=== PATIENT | female | born 1990 | race Caucasian/White ===

== ENCOUNTER → 2019-03-02 | Outpatient (CLI) | payer OTHER ==
[~2019-03-02] MED LIST: NUVARING VAG RING VG; PERCOCET 325 MG1 TA2 PO; PRENATAL1 TA1 PO; ULTRAM 50MG TAB50 MG PO; VICODIN 5/5001 UDTAB PO
== END ==
LOC: SUN.DIA 07:34
DX: O24.419 Gestational diabetes mellitus in pregnancy, unspecified control (principal); Z3A.21 21 weeks gestation of pregnancy
CPT/HCPCS: G0108

== ENCOUNTER → 2019-03-06 | Outpatient (CLI) | payer OTHER | LOC: SUN.DIA 09:29 | DX: O24.419 Gestational diabetes mellitus in pregnancy, unspecified control (principal); Z3A.20 20 weeks gestation of pregnancy | CPT/HCPCS: G0108 ==

== ENCOUNTER → 2019-03-27 | Outpatient (CLI) | payer OTHER | LOC: SUN.DIA 10:22 | DX: O24.419 Gestational diabetes mellitus in pregnancy, unspecified control (principal); Z3A.34 34 weeks gestation of pregnancy | CPT/HCPCS: G0108 ==

== ENCOUNTER 2019-04-23 19:09 | Outpatient (CLI) | payer OTHER ==
[~2019-04-23] VITALS: Ht 152.4 cm; Wt 94.1 kg
[2019-04-23 19:14] VITALS: BP 128/76; PULSE 93; TEMP 98.1
[2019-04-23 19:30] VITALS: BP 128/76; PULSE 93; TEMP 98.4
== END 2019-04-23 20:26 | disposition home or self-care (01) ==
LOC: LDRO 19:09
DX: O36.8130 Decreased fetal movements, third trimester, not applicable or unspecified (principal); Z3A.37 37 weeks gestation of pregnancy

== ENCOUNTER 2019-04-29 01:07 | Inpatient (IN) | payer OTHER ==
[2019-04-29] VITALS (21 sets, daily range): BP systolic 104–146; BP diastolic 54–96; PULSE 76–107; TEMP 98.6–99.4
[~2019-04-29] VITALS: Ht 152.4 cm; Wt 95.5 kg
--- NOTE | 2019-04-29 01:15 | NUR ---
0115- PATIENT BEING SEEN FOR LABOR CHECK AT 38.4 WEEKS WITH C/O OF CONTRACTIONS. VSS. SVE /-2, INTACT ON ADMISSION. GDM DIAGNOSIS WITH , ALSO GBS +
[2019-04-29 01:59] LABS: BASO % 0.2 % (0.0-2.0); EOS # 0.2 (0.0-0.7); EOS % 1.6 % (0-4.0); GRAN # 6.1 (1.4-6.5); GRAN % 65.4 % (42.2-75.2); HEMATOCRIT 37.6 % (37.0-47.0); HEMOGLOBIN 12.4 g/dl (12.5-16.0); LYMPH # 2.4 (1.2-3.4); LYMPH % 25.4 % (20.0-51.0); MEAN CELL VOLUME 83 fl (80.0-100.0); MEAN CORPUSCULAR HEMOGLOBIN 27 pg (27.0-31.0); MEAN CORPUSCULAR HGB CONC 33 g/dl (33.0-37.0); MEAN PLATELET VOLUME 11.5 fl (7.4-10.4); MONO # 0.7 (0.1-0.6); MONO % 7.1 % (1.7-9.3); PLATELET COUNT 191 K/mm3 (130-400); RED BLOOD COUNT 4.55 M/mm3 (4.10-5.30); REDCELL DISTRIBUTION WIDTH-CV 14.4 % (11.5-14.5)
--- NOTE | 2019-04-29 02:25 | NUR ---
0225- BEDSIDE GLUCOSE CHECK 95 AT THIS TIME
[2019-04-30 06:45] VITALS: BP 123/76; PULSE 86; TEMP 98.2
--- NOTE | 2019-04-30 06:45 | NUR ---
Rests om bed. alert. States having some numbness in her left leg. States thinks its from the epidural. Says has been having it for awhile, but able to walk. Will continue to monitor.
--- NOTE | 2019-04-30 09:06 | NUR ---
Initial visit; Mom thanked Uniform Room Attendant for offering congratulations and God's blessings for the of her son. Uniform Room Attendant thanked her for choosing [facility].
--- NOTE | 2019-04-30 10:30 | NUR ---
Destiny Kim visits with patient about left arm and left leg feeling numb.
--- NOTE | 2019-04-30 13:15 | NUR ---
Rests in chair . Request tums. Tums 1000 mg given as ordered.
[2019-04-30 16:15] VITALS: BP 120/67; PULSE 73; TEMP 98.2
[2019-04-30 21:15] VITALS: BP 125/70; PULSE 81; TEMP 98.4
[2019-05-01 07:55] VITALS: BP 126/81; PULSE 86; TEMP 98.2
[2019-05-01] MEDS ORDERED: IBU800 M1 PO (08:56)
== END 2019-05-01 15:00 | disposition home or self-care (01) | DRG 807 ==
LOC: LDRO 01:07 → OB 01:27 → LDR 01:27 → OB 06:14
PROVIDERS: Obstetrics & Gynecology; ADMIT Obstetrics & Gynecology
PROC: 10E0XZZ Delivery of Products of Conception, External Approach (ICD-10-PCS; principal; 2019-04-29)
PROC: 0HQ9XZZ Repair Perineum Skin, External Approach (ICD-10-PCS; 2019-04-29)
DX: O99.824 Streptococcus B carrier state complicating childbirth (principal); Z37.0 Single live birth; Z3A.38 38 weeks gestation of pregnancy; O70.0 First degree perineal laceration during delivery; G58.8 Other specified mononeuropathies; O69.81X0 Labor and delivery complicated by cord around neck, without compression, not applicable or unspecified; O24.420 Gestational diabetes mellitus in childbirth, diet controlled; O99.62 Diseases of the digestive system complicating childbirth; K21.9 Gastro-esophageal reflux disease without esophagitis; O99.344 Other mental disorders complicating childbirth
CPT/HCPCS: J2400; J2540; J2590; J7120

== ENCOUNTER → 2019-05-09 | Outpatient (CLI) | payer OTHER ==
[~2019-05-09] MED LIST changes: +IBU800 M1 PO
--- NOTE | 2019-05-09 14:27 | NUR ---
Pt, Amber Brown, presents for outpatient consult with 10 day old baby boy, Javon Ortega, for a evaluation. Pt is concerned about low milk supply, which was a problem with her previous child who is now 6. Javon was born on [birth year] and weighed 7#12oz (3505 gms). Discharge weight was 7#6.2oz (3350 gms). Javon is a patient of Dr. Martinez and has been followed closely for jaundice. Pt contacted this at the end of last week when bilirubin was elevated for advice, she was advised to breastfeed, supplement a couple ounces EBM or formula after and then pump and use the collected milk for supplement. Pt has generally followed this advice, perhaps not putting baby to breast as much over derrick weekend. Javon's weights reported from Dr. Martinez's office are as follows: 05/03/19 3.2 kg (7#0.9oz) 05/04/19 3.35 kg (7#6.2oz) 05/08/19 3.45 kg (7#9.7oz). At this appointment pt was advised to breastfeed each feeding and supplement with 1-2oz formula after feedings. Today Javon weighs 7#13.6oz (3562 gms). After at this appointment Javon has a weight gain per pre and post feeds weight of 28 gms. He is placed back to the breast with Supplemental Nursing System (SNS) and has an additional gain of 60gms from formula and 8 more gms from breastmilk for a total gain of 96 gms (3.5oz). Pt reports when she pumps after feedings she collects about 20ml. She is saving this in the freezer incase Javon is sick later. POC: Pt advised to continue with 3-step feeding plan of breast/supplement/pump. Encouraged to try SNS for supplement, and to offer 1-2oz supplement after . Pt also advised to increase pumping and incorporate a "power pumping" session in x1 daily. Pt also recently started use of herbal supplements to help with milk supply. F/U: one week for consult with this to evaluate milk supply/transfer. Questions invited and answered. Respectfully, Cecilia Reid RN, BSN, IBCLC
== END ==
LOC: OLC 12:07
DX: Z39.1 Encounter for care and examination of lactating mother (principal); Z71.89 Other specified counseling

== ENCOUNTER 2020-05-11 08:07 | Outpatient (CLI) | payer MEDICAID ==
[~2020-05-11] VITALS: Ht 152.4 cm; Wt 91.4 kg
[2020-05-11] MEDS ORDERED: TYLENOL 500MG500 MG PO (08:10)
[2020-05-11 08:11] VITALS: BP 132/72; PULSE 88; TEMP 98.5
--- NOTE | 2020-05-11 08:25 | NUR ---
PT HERE FOR EVALUATION SHE REPORTS SHE HAS HAD HEADACHES FOR THE LAST MONTH THAT ARE WORSENING. OVER THE LAST 2 DAYS HAVING BACK AND ABDOMINAL PAIN BUT DENIES CONTRACTIONS. PT STATES SHE RECEIVED 2 DEPO PROVERA SHOTS BEFORE SHE FOUND OUT SHE WAS . FHT'S FOUND IN THE 135 RANGE WITH MODERATE VARIABILITY AND ACCELS. PLAN OF CARE REVIEWED WITH PATIENT.
[2020-05-11 09:00] VITALS: BP 132/72; PULSE 88; TEMP 98.5
--- NOTE | 2020-05-11 09:31 | NUR ---
Dr. Meehan on unit, reviews FHR strip and updated on patient. Patient able to void for UA at this time, sent to lab.
[2020-05-11 09:35] LABS: COLLECTION METHOD CLEAN CATCH
[2020-05-11 09:46] LABS: MUCOUS Present /lpf; PH 6 (5-8); URINE APPEARANCE Hazy; URINE BACTERIA None Seen /hpf; URINE BILIRUBIN Negative (NEGATIVE); URINE BLOOD Negative (NEGATIVE); URINE COLOR Yellow; URINE GLUCOSE Negative (NEGATIVE); URINE KETONE Trace (NEGATIVE); URINE LEUKOCYTE ESTERASE Negative (NEGATIVE); URINE NITRATE Negative (NEGATIVE); URINE PROTEIN(semi-quant) Negative (NEGATIVE); URINE RBC 0-2 /hpf; URINE UROBILINOGEN Negative (NEGATIVE); URINE WBC 0-2 /hpf
--- NOTE | 2020-05-11 09:52 | NUR ---
Physician on unit, udpated on lab results. Discharge order recieved.
--- NOTE | 2020-05-11 10:00 | NUR ---
Patient given discharge instructions. Reviewed labor precautions and kick counts. Denies questions. Has follow up appt tomorrow. Encouraged increased oral hydration and rest. Patient leaves ambulatory.
== END 2020-05-11 10:00 | disposition home or self-care (01) ==
LOC: LDRO 08:07 → LDR 08:07 → LDRO 10:00
PROVIDERS: Student in an Organized Health Care Education/Training Program
DX: O36.8130 Decreased fetal movements, third trimester, not applicable or unspecified (principal); O26.893 Other specified pregnancy related conditions, third trimester; M54.9 Dorsalgia, unspecified; R10.9 Unspecified abdominal pain; R51 Headache; Z3A.28 28 weeks gestation of pregnancy; Z87.59 Personal history of other complications of pregnancy, childbirth and the puerperium
CPT/HCPCS: OP

== ENCOUNTER 2020-07-18 06:30 | Inpatient (IN) | payer MEDICAID ==
[~2020-07-18] VITALS: Ht 154.9 cm; Wt 97.3 kg
[2020-07-18] VITALS (15 sets, daily range): BP systolic 129–163; BP diastolic 64–95; PULSE 71–97; TEMP 97.7–98
[~2020-07-18 06:30] MED LIST changes: +TYLENOL 500MG500 MG PO
--- NOTE | 2020-07-18 06:30 | NUR ---
PATIENT HERE COMPLAINS OF CONTRACTIONS. ON EFM, VITALS OBTAINED, ASSESMENT COMPLETE,PATIENT HAS MILD BLOODY SHOW. SVE /-2. DR VELOZ NOTIFIED.
--- NOTE | 2020-07-18 08:35 | NUR ---
Assumed care of patient. Rests in bed, alert. Asked to stand up. Assist patient, standing at bedside. 0843 States having to push. Patient assist to lying position. 0847 Vag exam done, complete, plus two. Dr. Noland let know patient complete ready to push. 0850 Dr. Noland in room, prepps for delivery. 0854 Spontaneous delivery of baby girl by Dr. Noland. 0857 Spontaneous delivery of placenta by Dr. Noland. Pitocin 333ccs an hour started as ordered and per policy.
[2020-07-18 08:44] LABS: BASO % 0.3 % (0.0-2.0); EOS # 0.2 (0.0-0.7); EOS % 1.5 % (0-4.0); GRAN # 7.8 (1.4-6.5); GRAN % 71.1 % (42.2-75.2); HEMATOCRIT 41.1 % (37.0-47.0); HEMOGLOBIN 13.3 g/dl (12.5-16.0); LYMPH # 2.4 (1.2-3.4); LYMPH % 22.2 % (20.0-51.0); MEAN CELL VOLUME 78 fl (80.0-100.0); MEAN CORPUSCULAR HEMOGLOBIN 25 pg (27.0-31.0); MEAN CORPUSCULAR HGB CONC 32 g/dl (33.0-37.0); MEAN PLATELET VOLUME 11.2 fl (7.4-10.4); MONO # 0.5 (0.1-0.6); MONO % 4.4 % (1.7-9.3); PLATELET COUNT 255 K/mm3 (130-400); RED BLOOD COUNT 5.26 M/mm3 (4.10-5.30); REDCELL DISTRIBUTION WIDTH-CV 16.2 % (11.5-14.5)
--- NOTE | 2020-07-18 08:46 | NUR ---
0740- CONTRACTION BUTTON GIVEN TO PATIENT. UNABLE TO SHOW HORSE DRIVER CONTRACTIONS. 0820- DR VELOZ UNABLE TO BREAK WATER- NO BAG PER DR VELOZ
--- NOTE | 2020-07-18 09:15 | NUR ---
Rests in bed, alert. Denies any pain at this time. Holds baby lovingly.
--- NOTE | 2020-07-18 09:45 | NUR ---
Rests in bed, alert. Holds baby lovingly. Denies any needs at this time.
--- NOTE | 2020-07-18 10:45 | NUR ---
Ambulates to the bathroom. Voids small amount of red color urine. Per-care explained and done by patient. New gown on. Ambulates to room 212. Oriented to room.
--- NOTE | 2020-07-18 14:00 | NUR ---
Rests in bed, alert. customer consultant her working with patient.
--- NOTE | 2020-07-18 17:00 | NUR ---
Rests in bed, alert. Cytocec 600 mcg given per rectum as ordered.
[2020-07-19 02:30] VITALS: BP 126/84; PULSE 81; TEMP 97.7
[2020-07-19] MEDS ORDERED: PERCOCET 325 MG1 TA2 PO (07:27)
[2020-07-19 07:39] VITALS: BP 130/83; PULSE 92; TEMP 98.1
[2020-07-19 09:10] LABS: HEMATOCRIT 37.5 % (37.0-47.0); HEMOGLOBIN 11.9 g/dl (12.5-16.0)
== END 2020-07-19 13:05 | disposition home or self-care (01) | DRG 806 ==
LOC: LDRO 06:30 → LDR 06:58 → OB 10:45
PROVIDERS: Obstetrics & Gynecology; ADMIT Obstetrics & Gynecology
PROC: 10E0XZZ Delivery of Products of Conception, External Approach (ICD-10-PCS; principal; 2020-07-18)
PROC: 10907ZC Drainage of Amniotic Fluid, Therapeutic from Products of Conception, Via Natural or Artificial Opening (ICD-10-PCS; 2020-07-18)
DX: O99.344 Other mental disorders complicating childbirth (principal); O99.354 Diseases of the nervous system complicating childbirth; Z37.0 Single live birth; O99.214 Obesity complicating childbirth; E66.9 Obesity, unspecified; O99.62 Diseases of the digestive system complicating childbirth; F32.9 Major depressive disorder, single episode, unspecified; M54.30 Sciatica, unspecified side; K21.9 Gastro-esophageal reflux disease without esophagitis; G43.909 Migraine, unspecified, not intractable, without status migrainosus; Z3A.38 38 weeks gestation of pregnancy
CPT/HCPCS: J2590; J2795; J7120

== ENCOUNTER 2023-11-27 20:32 | Emergency (ER) | payer MEDICAID ==
[~2023-11-27] VITALS: Ht 154.9 cm; Wt 95.5 kg
[~2023-11-27 20:32] MED LIST changes: +NORCO 325 MG-51 TAB PO; +PHENTERMINE15 MG; +PYRIDIUM 100MG100 MG PO
[2023-11-27 20:55] LABS: COLLECTION METHOD CLEAN CATCH
[2023-11-27] MEDS ORDERED: Ondansetron 4 MG/2 ML VIAL IV ONE (21:00)
[2023-11-27] MEDS ORDERED: Morphine 4 MG/ML VIAL IV ONE (21:00)
[2023-11-27] MEDS ORDERED: NS 1,000 ML IV ONE (21:00)
[2023-11-27 21:05] LABS: URINE APPEARANCE CLEAR (CLEAR/HAZY); URINE BLOOD NEGATIVE (NEGATIVE); URINE COLOR YELLOW (YELLOW); URINE GLUCOSE NEGATIVE (NEGATIVE); URINE KETONE TRACE (NEGATIVE); URINE NITRATE NEGATIVE (NEGATIVE); URINE PROTEIN(semi-quant) NEGATIVE (NEGATIVE); URINE UROBILINOGEN 0.2 E.U/dL (0.2-1.0)
[2023-11-27 21:09] LABS: BASO # 0.1 K/mm3 (0.0-0.2); BASO % 0.6 % (0.0-2.0); EOS # 0.3 K/mm3 (0.0-0.7); EOS % 2.6 % (0.0-4.0); GRAN # 5.8 K/mm3 (1.4-6.5); GRAN % 53.1 % (42.2-75.2); HEMOGLOBIN 11.7 g/dl (12.5-16.0); LYMPH # 4.1 K/mm3 (1.2-3.4); LYMPH % 37.7 % (20.0-51.0); MEAN CELL VOLUME 79 fl (80.0-100.0); MEAN CORPUSCULAR HEMOGLOBIN 25 pg (27-31); MEAN CORPUSCULAR HGB CONC 32 g/dl (33.0-37.0); MEAN PLATELET VOLUME 10.7 fl (7.4-10.4); MONO # 0.6 K/mm3 (0.1-0.6); MONO % 5.6 % (1.7-9.3); PLATELET COUNT 263 K/mm3 (130-400); RED BLOOD COUNT 4.65 M/mm3 (4.10-5.30); REDCELL DISTRIBUTION WIDTH-CV 14.6 % (11.5-14.5)
[2023-11-27 21:13] LABS: HEMATOCRIT 36.9 % (37.0-47.0)
[2023-11-27 21:24] LABS: ALBUMIN 3.8 gm/dL (3.5-5.0); BILIRUBIN,TOTAL 0.2 mg/dL (0.2-1.2); C-REACTIVE PROTEIN 0.61 mg/dL (0.00-0.50); CALCIUM 9.3 mg/dL (8.4-10.2); CREATININE, serum 0.75 mg/dL (0.57-1.11); POTASSIUM 4.2 mmol/L (3.5-4.5); TOTAL PROTEIN 7.3 gm/dL (6.2-8.1)
[2023-11-27] MEDS ORDERED: NS 60 ML IV SCH (21:56)
[2023-11-27] MEDS ORDERED: Iohexol 300 - 100 ML VIAL IV ONE (21:56)
[2023-11-27 22:52] VITALS: TEMP 98.7
[2023-11-27] MEDS ORDERED: cefTRIAXone 1 G in Water For Injection,Sterile 10 ML IV ONE (23:00)
[2023-11-27] MEDS ORDERED: NORCO 325 MG-51 TAB PO (23:08)
[2023-11-27] MEDS ORDERED: CEFTIN 250250 MG/TAB PO (23:08)
[2023-11-27] MEDS ORDERED: Home HYDROcodone/Acetaminophen 5/325 MG #4 TABS/PACK PO ONE (23:15)
[2023-11-27] MEDS ORDERED: ZOFRAN ODT4 MG PO (23:26)
[2023-11-27] MEDS ORDERED: Home Ondansetron ODT 4 MG #2 ODT/PACK PO ONE (23:30)
[2023-11-27 23:44] VITALS: BP 128/61; PULSE 88
== END 2023-11-27 23:45 | disposition home or self-care (01) ==
LOC: COL.ER 20:32
PROVIDERS: Nurse Practitioner
DX: N20.0 Calculus of kidney (principal); N39.0 Urinary tract infection, site not specified
CPT/HCPCS: J0696; J2270; J2405; J7030; Q9967